=== PATIENT | female | born 1990 | race Caucasian/White ===

== ENCOUNTER 2016-03-26 22:35 | Emergency (ER) | payer SELFPAY ==
[~2016-03-26] VITALS: Ht 162.6 cm; Wt 56.0 kg
[~2016-03-26 22:35] MED LIST: CEPH500 PO; DICL50 PO; DOXY100T PO; NAPR500 PO; VENTAER INH
[2016-03-26 22:39] VITALS: BP 129/59; PULSE 74; RESP 15; TEMP 98.4; O2SAT 97
[2016-03-27] MEDS ORDERED: SODIUM CHLORIDE 0.9% FLUSH 5 ML FLUSH IVF PRN (00:15)
[2016-03-27] MEDS ORDERED: KETOROLAC TROMETHAMINE 30 MG/ML (IVP) VIAL IVP ONE (00:15)
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
[2016-03-27 01:00] LABS: AUTOMATED NEUTROPHIL # 6.2 TH/MM3 (1.8-7.7); BASOPHIL % 0.5 % (0.0-2.0); EOSINOPHIL # 0.1 TH/MM3 (0-0.4); EOSINOPHIL % 1.5 % (0.0-4.0); HEMATOCRIT 37.6 % (35.0-46.0); HEMO FLAGS DIFF FINAL; LYMPH % 26.7 % (9.0-44.0); LYMPHOCYTE # 2.6 TH/MM3 (1.0-4.8); MEAN CELL VOLUME 88.5 FL (80.0-100.0); MEAN CORPUSCULAR HGB CONC 33.9 % (32.0-36.0); MONO % 7.9 % (0.0-8.0); NEUT % 63.4 % (16.0-70.0); PLATELET COUNT 251 TH/MM3 (150-450); RED BLOOD COUNT 4.25 MIL/MM3 (4.00-5.30); RED CELL DISTRIBUTION WIDTH 14.5 % (11.6-17.2); WHITE BLOOD COUNT 9.8 TH/MM3 (4.0-11.0)
[2016-03-27 01:07] LABS: BLOOD, URINE NEG (NEG); COMMENT (UR) CULT NOT INDICATED; CULTURE IF INDICATED CULT NOT INDICATED; GLUCOSE,URINE NEG (NEG); KETONE, URINE NEG (NEG); MUCUS URINE FEW /lpf (OCC); NITRITE,URINE NEG (NEG); SQUAMOUS EPITHELIAL CELL URINE 8 /hpf (0-5); URINE COLOR YELLOW (YELLW/STRAW)
[2016-03-27 01:24] LABS: ALT (GPT) 19 U/L (10-53); ANION GAP 5 MEQ/L (5-15); AST (GOT) 14 U/L (15-37); BICARBONATE 25.6 MEQ/L (21.0-32.0); BLOOD UREA NITROGEN 6 MG/DL (7-18); CHLORIDE 109 MEQ/L (98-107); GLOMERULAR FILTRATION RATE 73 ML/MIN (>89); POTASSIUM 3.8 MEQ/L (3.5-5.1); SODIUM (NA) 140 MEQ/L (136-145)
[2016-03-27 01:26] LABS: ALKALINE PHOSPHATASE 42 U/L (45-117); TOTAL BILIRUBIN ADULT 0.5 MG/DL (0.2-1.0)
--- NOTE | 2016-03-27 01:35 | RADRPT ---
EXAM DATE/TIME: 03/27/2016 00:55 [facility] COMPARISON: CT ABDOMEN & PELVIS W/O CONTRAST, October 15, 2015, 10:34. INDICATIONS : Left flank pain. ORAL CONTRAST: No oral contrast ingested. RADIATION DOSE: 9.96 CTDIvol (mGy) MEDICAL HISTORY : Hypertension. Asthma SURGICAL HISTORY : None. ENCOUNTER: Initial ACUITY: 1 day PAIN SCALE: 10/10 LOCATION: Left flank TECHNIQUE: Volumetric scanning of the abdomen and pelvis was performed. Using automated exposure control and ad justment of the mA and/or kV according to patient size, radiation dose was kept as low as reasonably achievable to obtain optimal diagnostic quality images. FINDINGS: LOWER LUNGS: The visualized lower lungs are clear. LIVER: Homogeneous density without lesion. There is no dilation of the biliary tree. No calcified gallston es. SPLEEN: Normal size without lesion. PANCREAS: Within normal limits. KIDNEYS: Normal in size and shape. There is no mass, stone, or hydronephrosis. ADRENAL GLANDS: Within normal limits. VASCULAR: There is no aortic aneurysm. BOWEL/MESENTERY: The stomach, small bowel, and colon demonstrate no acute abnormality. There is no free intraperitone al air or fluid. Appendix is normal. ABDOMINAL WALL: Within normal limits. RETROPERITONEUM: There is no lymphadenopathy. BLADDER: No wall thickening or mass. REPRODUCTIVE: Within normal limits. INGUINAL: There is no lymphadenopathy or hernia. MUSCULOSKELETAL: Within normal limits for patient age. CONCLUSION: No abnormality is identified to explain the left flank pain. No renal stones are visualized. Jon Person MD on March 27, 2016 at 1:30 Board Certified Radiologist. This report was verified electronically.
[2016-03-27] MEDS ORDERED: BACT800T5 PO (01:41)
== END 2016-03-27 02:13 | disposition home or self-care (01) ==
LOC: NEPE 22:35
DX: N30.00 Acute cystitis without hematuria (principal); R10.9 Unspecified abdominal pain; E07.9 Disorder of thyroid, unspecified; F17.200 Nicotine dependence, unspecified, uncomplicated; Z86.59 Personal history of other mental and behavioral disorders; Z87.09 Personal history of other diseases of the respiratory system; Z87.19 Personal history of other diseases of the digestive system; Z86.69 Personal history of other diseases of the nervous system and sense organs
CPT/HCPCS: 74176; 80053; 81001; 83690; 84703; 85025; 96374; 99284; J1885

== ENCOUNTER 2016-08-10 04:44 | Emergency (ER) | payer OTHER ==
[~2016-08-10] VITALS: Ht 162.6 cm; Wt 60.0 kg
[~2016-08-10 04:44] MED LIST changes: +BACT800T5 PO; -CEPH500 PO; -DICL50 PO; -DOXY100T PO; -NAPR500 PO; -VENTAER INH
[2016-08-10 04:45] VITALS: BP 122/96; PULSE 79; RESP 16; TEMP 98.6; O2SAT 98
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
--- NOTE | 2016-08-10 05:36 | RADRPT ---
EXAM DATE/TIME: 08/10/2016 05:29 [facility] COMPARISON: CHEST SINGLE AP, September 13, 2015, 8:53. INDICATIONS : Cough. MEDICAL HISTORY : None. SURGICAL HISTORY : None. ENCOUNTER: Initial ACUITY: 1 day PAIN SCORE: 0/10 LOCATION: Left chest FINDINGS: A single view of the chest demonstrates the lungs to be symmetrically aerated without evidence of mas s, infiltrate or effusion. The cardiomediastinal contours are unremarkable. Osseous structures are intact. CONCLUSION: No evidence of acute cardiopulmonary disease. Jon Box MD on August 10, 2016 at 5:34 Board Certified Radiologist. This report was verified electronically.
[2016-08-10 05:42] LABS: AUTOMATED NEUTROPHIL # 12.3 TH/MM3 (1.8-7.7); BASOPHIL # 0.1 TH/MM3 (0-0.2); BASOPHIL % 0.4 % (0.0-2.0); EOSINOPHIL # 0.1 TH/MM3 (0-0.4); EOSINOPHIL % 0.5 % (0.0-4.0); HEMATOCRIT 44.5 % (35.0-46.0); HEMO FLAGS DIFF FINAL; LYMPH % 14.5 % (9.0-44.0); LYMPHOCYTE # 2.2 TH/MM3 (1.0-4.8); MEAN CELL VOLUME 88.5 FL (80.0-100.0); MEAN CORPUSCULAR HEMOGLOBIN 28.9 PG (27.0-34.0); MEAN CORPUSCULAR HGB CONC 32.6 % (32.0-36.0); MONO % 5.4 % (0.0-8.0); NEUT % 79.2 % (16.0-70.0); PLATELET COUNT 294 TH/MM3 (150-450); RED BLOOD COUNT 5.03 MIL/MM3 (4.00-5.30); RED CELL DISTRIBUTION WIDTH 14.3 % (11.6-17.2); WHITE BLOOD COUNT 15.5 TH/MM3 (4.0-11.0)
[2016-08-10 05:57] LABS: BACTERIA, URINE RARE /hpf; BLOOD, URINE MOD (NEG); COMMENT (UR) CULTURE INDICATED; CULTURE IF INDICATED CULTURE INDICATED; GLUCOSE,URINE NEG (NEG); KETONE, URINE NEG (NEG); MUCUS URINE FEW /lpf (OCC); NITRITE,URINE NEG (NEG); PH, URINE 6.5 (5.0-8.5); SQUAMOUS EPITHELIAL CELL URINE 2 /hpf (0-5); URINE COLOR YELLOW (YELLW/STRAW)
[2016-08-10 06:00] LABS: ALT (GPT) 26 U/L (10-53); ANION GAP 8 MEQ/L (5-15); AST (GOT) 19 U/L (15-37); BICARBONATE 25.5 MEQ/L (21.0-32.0); BLOOD UREA NITROGEN 8 MG/DL (7-18); CHLORIDE 104 MEQ/L (98-107); GLOMERULAR FILTRATION RATE 51 ML/MIN (>89); POTASSIUM 4.4 MEQ/L (3.5-5.1); SODIUM (NA) 137 MEQ/L (136-145)
[2016-08-10 06:02] LABS: ALKALINE PHOSPHATASE 46 U/L (45-117); TOTAL BILIRUBIN ADULT 0.5 MG/DL (0.2-1.0)
[2016-08-10] MEDS ORDERED: KETOROLAC TROMETHAMINE 30 MG/ML (IVP) VIAL IV PUSH ONE (06:15)
[2016-08-10] MEDS ORDERED: SODIUM CHLOR 0.9% 1000 ML INJ 1,000 ML IV ONE (06:15)
[2016-08-10] MEDS ORDERED: EC-N500T PO (06:59)
[2016-08-10] MEDS ORDERED: CYCL5TAB PO (06:59)
--- NOTE | 2016-08-10 07:22 | PD ---
Data Data Last Documented VS Vital Signs Date Time Temp Pulse Resp B/P Pulse Ox O2 Delivery O2 Flow Rate FiO2 08/10/16 04:52 16 08/10/16 04:45 98.6 79 122/96 98 Room Air Orders Complete Blood Count With Diff (08/10/16 05:11) Comprehensive Metabolic Panel (08/10/16 05:11) Lipase (08/10/16 05:11) Urinalysis - C+S If Indicated (08/10/16 05:11) Chest, Single Ap (08/10/16 05:11) Iv Access Insert/Monitor (08/10/16 05:11) Ecg Monitoring (08/10/16 05:11) Oximetry (08/10/16 05:11) Ed Urine Pregnancytest Poc (08/10/16 05:11) Urine Culture (08/10/16 05:30) Sodium Chlor 0.9% 1000 Ml Inj (Ns 1000 M (08/10/16 06:15) Ketorolac Inj (Toradol Inj) (08/10/16 06:15) Us Arm Venous Doppler (08/10/16 07:13) Labs Laboratory Tests Test 08/10/16 08/10/16 05:20 05:30 White Blood Count 15.5 TH/MM3 Red Blood Count 5.03 MIL/MM3 Hemoglobin 14.5 GM/DL Hematocrit 44.5 % Mean Corpuscular Volume 88.5 FL Mean Corpuscular Hemoglobin 28.9 PG Mean Corpuscular Hemoglobin 32.6 % Concent Red Cell Distribution Width 14.3 % Platelet Count 294 TH/MM3 Mean Platelet Volume 8.9 FL Neutrophils (%) (Auto) 79.2 % Lymphocytes (%) (Auto) 14.5 % Monocytes (%) (Auto) 5.4 % Eosinophils (%) (Auto) 0.5 % Basophils (%) (Auto) 0.4 % Neutrophils # (Auto) 12.3 TH/MM3 Lymphocytes # (Auto) 2.2 TH/MM3 Monocytes # (Auto) 0.8 TH/MM3 Eosinophils # (Auto) 0.1 TH/MM3 Basophils # (Auto) 0.1 TH/MM3 CBC Comment DIFF FINAL Differential Comment Sodium Level 137 MEQ/L Potassium Level 4.4 MEQ/L Chloride Level 104 MEQ/L Carbon Dioxide Level 25.5 MEQ/L Anion Gap 8 MEQ/L Blood Urea Nitrogen 8 MG/DL Creatinine 1.28 MG/DL Estimat Glomerular Filtration 51 ML/MIN Rate Random Glucose 76 MG/DL Calcium Level 9.2 MG/DL Total Bilirubin 0.5 MG/DL Aspartate Amino Transf 19 U/L (AST/SGOT) Alanine Aminotransferase 26 U/L (ALT/SGPT) Alkaline Phosphatase 46 U/L Total Protein 7.9 GM/DL Albumin 4.1 GM/DL Lipase 115 U/L Urine Color YELLOW Urine Turbidity CLEAR Urine pH 6.5 Urine Specific [place] 1.017 Urine Protein TRACE mg/dL Urine Glucose (UA) NEG mg/dL Urine Ketones NEG mg/dL Urine Occult Blood MOD Urine Nitrite NEG Urine Bilirubin NEG Urine Urobilinogen 2.0 MG/DL Urine Leukocyte Esterase LARGE Urine RBC 6 /hpf Urine WBC 22 /hpf Urine Squamous Epithelial 2 /hpf Cells Urine Bacteria RARE /hpf Urine Mucus FEW /lpf Microscopic Urinalysis Comment CULTURE INDICATED MDM Supervised Visit with [facility]: No Narrative Course 26 year-old woman presents emergency department multiple complaints. She was evaluated by Dr. Colón. One of her complaints include some swelling to her arm where she had a IV. Patient was signed out to me to follow-up on the results of an ultrasound rule out DVT. Ultrasound is negative. Diagnosis Primary Impression: Back pain Qualified Code: M54.6 - Acute left-sided thoracic back pain Additional Impression: Proctocolitis Referrals: Primary Care Physician 2 days Patient Instructions: General Instructions, Back Pain (ED), Infectious Colitis (ED) Departure Forms: Tests/Procedures Additional Instruction: Complete the course of ciprofloxacin and Flagyl as previously prescribed. Scripts Naproxen DR (EC-Naprosyn)500 Mg [id number] Mg PO BID PRN (PAIN GREATER THAN 5) # 10 TAB Ref 0 Prov:Day Colón MD 08/10/16 Cyclobenzaprine (Flexeril)5 Mg Tab5 Mg PO TID PRN (SPASM) #12 TAB Ref 0 Prov:Day Colón MD 08/10/16 Disposition: 01 DISCHARGE HOME Condition: Stable Mauricio Unger MD Aug 10, 2016 07:21
--- NOTE | 2016-08-10 08:54 | RADRPT ---
EXAM DATE/TIME: 08/10/2016 08:10 [facility] COMPARISON: No previous studies available for comparison. INDICATIONS : Right arm swelling. MEDICAL HISTORY : Hypertension. Gastroesophageal reflux disease. Hyperthyroidism. Seizures. Migraine. Asthma. Ovarian cysts. Bipolar. Depression. Anxiety. SURGICAL HISTORY : Eye surgery. ENCOUNTER: Initial ACUITY: 1 day PAIN SCORE: 8/10 LOCATION: Right arm. FINDINGS: There is spontaneous flow documented in the brachial, basilic, cephalic, axillary, and subclavian vei ns. The vessels are compressible and augmentation response is documented. No filling defects are se en. The flow is phasic with respiration. Direction of flow in the jugular vein is caudal. CONCLUSION: No DVT right arm. Ernesto Fox MD on August 10, 2016 at 8:51 Board Certified Radiologist. This report was verified electronically.
[2016-08-10 09:31] VITALS: BP 126/78
== END 2016-08-10 09:34 | disposition home or self-care (01) ==
LOC: NEPC 04:44
DX: M54.6 Pain in thoracic spine (principal); K51.30 Ulcerative (chronic) rectosigmoiditis without complications; M79.621 Pain in right upper arm; R22.31 Localized swelling, mass and lump, right upper limb; R82.99 Other abnormal findings in urine; E07.9 Disorder of thyroid, unspecified; F17.200 Nicotine dependence, unspecified, uncomplicated; Z86.59 Personal history of other mental and behavioral disorders; Z87.09 Personal history of other diseases of the respiratory system; Z87.19 Personal history of other diseases of the digestive system; Z86.69 Personal history of other diseases of the nervous system and sense organs
CPT/HCPCS: 71010; 80053; 81001; 83690; 84703; 85025; 87086; 93971; 96361; 96374; 99285; J1885; J7030

== ENCOUNTER 2016-08-27 04:12 | Emergency (ER) | payer OTHER ==
[~2016-08-27] VITALS: Ht 162.6 cm; Wt 60.0 kg
[~2016-08-27 04:12] MED LIST changes: -BACT800T5 PO; +CYCL5TAB PO; +EC-N500T PO
[2016-08-27 04:13] VITALS: BP 127/86; PULSE 87; RESP 16; TEMP 98.8; O2SAT 96
--- NOTE | 2016-08-27 04:39 | PD ---
HPI Chief Complaint: Bite or Sting Time Seen by Provider: 04:36 Travel History International Travel<30 days: No Contact w/Intl Traveler<30days: No Traveled to known affect area: No History of Present Illness HPI Patient comes in complaining of a rash began on her right posterior thigh week ago and since spread to her left anterior thigh, right calf, and right posterior auricle. Patient states she went to a different ER 2 days ago was started on Bactroban which she used twice but reports that it caused burning to the rash so she stopped it. Patient reports rash starts as a small red spot and begins having some yellowish drainage and crusting. Denies any fevers or being around anyone else with similar. Patient is uncertain if she is or not. Pain is worse with palpation around the rash without radiation. Bactroban seemed to help some but patient did not tolerate secondary to causing a burning sensation in the rash. PFSH Past Medical History ADD: Yes ADHD: Yes Asthma: Yes Bipolar Disorder: Yes Anxiety: Yes Depression: Yes Cancer: No Cardiovascular Problems: No Chemotherapy: No Chest Pain: Yes (anxiety induced ) COPD: No Cerebrovascular Accident: No Diabetes: No Diminished Hearing: No Endocrine: Yes Gastrointestinal Disorders: No GERD: Yes Genitourinary: No Headaches: Yes Hiatal Hernia: No Immune Disorder: No Kidney Stones: No Musculoskeletal: No Psychiatric: Yes Reproductive: No Respiratory: Yes (ASTHMA) Integumentary: Yes (HX SCABIES) Immunizations Current: Yes Migraines: Yes (frequent) Pneumonia: Yes (HX CHILD) Radiation Therapy: No Renal Failure: No Seizures: Yes (stress induced on 09/11/15) Sleep Apnea: No Thyroid Disease: Yes (HYPER) Ulcer: No ?: Not : 8 Para: 3 Miscarriage: 5 Ovarian Cysts: Yes Past Surgical History 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) Genitourinary Surgery: No Gynecologic Surgery: No Insulin Pump: No Joint Replacement: No Oral Surgery: No Pacemaker: No Thoracic Surgery: No Other Surgery: Yes Social History Alcohol Use: No (OCCASIONAL when not ) Tobacco Use: Yes (10 cigarettes per day) Substance Use: No (pt states she has stoped using) Allergies-Medications (Allergen,Severity, Reaction): Coded Allergies: No Known Allergies (Unverified , 08/27/16) Reported Meds & Prescriptions Reported Meds & Active Scripts Active Bactrim DS (Sulfamethoxazole-Trimethoprim) 800-160 Mg Tab 1 Tab PO BID Review of Systems Except as stated in HPI: all other systems reviewed are Neg Physical Exam Narrative GENERAL: Well-developed, well nourished, in no acute distress, and non-ill appearing. SKIN: Focused skin assessment warm and dry. Impetigo appearing rash in her right posterior thigh of left anterior thigh right posterior auricle. There is some yellow crusting. There is no drainage. There is no surrounding cellulitis. There is no fluctuation. There is no crepitus. HEAD: Atraumatic. Normocephalic. EYES: Pupils equal and round. EOMI. No scleral icterus. No injection or drainage. ENT: No nasal bleeding or discharge. Mucous membranes pink and moist. NECK: Trachea midline. Supple. No nuclear rigidity. RESPIRATORY: No accessory muscle use. No respiratory distress. MUSCULOSKELETAL: No obvious deformities. No clubbing. No cyanosis. No edema. Full range of motion. Normal gait. NEUROLOGICAL: Awake and alert. No obvious cranial nerve deficits. Motor grossly within normal limits. Normal speech. PSYCHIATRIC: Appropriate mood and affect; insight and judgment normal. Data Data Last Documented VS Vital Signs Date Time Temp Pulse Resp B/P Pulse Ox O2 Delivery O2 Flow Rate FiO2 08/27/16 04:28 87 16 08/27/16 04:13 98.8 127/86 96 Room Air Orders Ed Urine Pregnancytest Poc (08/27/16 04:34) MDM Medical Decision Making Medical Screen Exam Complete: Yes Emergency Medical Condition: Yes Differential Diagnosis Abscess, cellulitis, impetigo, Corazon, folliculitis, other Narrative Course The patient looks great and was non-ill appearing. There was no evidence to suggest scabies, cellulitis, folliculitis or abscess, Staph. Scalded Skin Syndrome, Toxic Shock, Toxic Epidermal necrolysis, Kawasakis, Measles, Rubella , cutaneous T cell lymphoma, Erythema Multiforme (minor or major). Plan of care was discussed with the patient and the patient is to follow up with their physician. The patient agreed with plan. Patient in no obvious distress upon re-evaluation. Patient was asked if they wanted to speak to my attending, which the patient did not wish to do at this time. Any questions/concerns in reference to patient diagnosis/condition discussed and clarified prior to patient's discharge. Reinforced sheer importance of close follow up with patient's primary physician or primary care clinic. Instructed patient to return to ED immediately, if symptoms return/ worsen. Pt showed understanding of above instructions. Further instructions and recommendations were detailed in discharge paperwork. Pt ambulated without difficulty out of ED at discharge. Diagnosis Primary Impression: Impetigo Patient Instructions: General Instructions, Impetigo (ED) Additional Instructions: Follow-up with your primary care physician in 3-5 days for evaluation. Take all medication as prescribed. Return to the emergency department if symptoms get worse. Med/Other Pt SpecificInfo: Prescription(s) given Scripts Sulfamethoxazole-Trimethoprim (Bactrim DS)800-160 Mg Tab1 Tab PO BID #20 TAB Ref 0 Prov:Tomasa Grissom MD 08/27/16 Disposition: 01 DISCHARGE HOME Condition: Stable Ladarius Tracy Aug 27, 2016 04:39
[2016-08-27] MEDS ORDERED: BACT800T5 PO (04:45)
== END 2016-08-27 05:10 | disposition home or self-care (01) ==
LOC: NEPD 04:12
DX: L01.00 Impetigo, unspecified (principal); E05.90 Thyrotoxicosis, unspecified without thyrotoxic crisis or storm; J45.909 Unspecified asthma, uncomplicated; K21.9 Gastro-esophageal reflux disease without esophagitis; F31.9 Bipolar disorder, unspecified; F41.9 Anxiety disorder, unspecified; F90.9 Attention-deficit hyperactivity disorder, unspecified type; F17.210 Nicotine dependence, cigarettes, uncomplicated
CPT/HCPCS: 84703; 99283